=== PATIENT | male | born 1960 | race Caucasian/White ===

== ENCOUNTER 2024-08-18 18:15 | Inpatient (IN) | payer OTHER, SELFPAY ==
[2024-08-18] VITALS (10 sets, daily range): BP systolic 115–169; BP diastolic 74–95; BMI 32.5; BMI 32.1
--- NOTE | 2024-08-18 15:15 | EDRN ---
Francisca BENTON in room w/pt at this time.
--- NOTE | 2024-08-18 15:35 | ED.GENMED ---
History of Present Illness
<Cha Ovalle PA-C - Last Filed: 08/19/24 07:06>
General
Chief Complaint: Chest Pain
Source: patient
Exam Limitations: none
Time Seen by Provider: 08/18/24 14:55
Nursing documentation reviewed up to this point in time: agreed with
History of Present Illness
History of Present Illness:
pt is a 63 y/o M
h/o PAF on eliquis
followed by dr. barillas from cardiology ([place]) and dr. george from EP
scheduled for ablation on 08/29
while here at the hospital having preadmission testing done, pt developed 8/10 central cp, into jaw and donw L arm lasting 10 minutes;
it fully resolved
someone at the office nioticed and flor a troponin, he saw the [employer] and she recommended he come to the ER
pt has no pain now
he says when this pain first started several months ago it was super rare
now i nthe past few weeks he is having episodes every 3 days or so and when it comes on it is intense but it always resolves; and it is always while doing something though it can be light activity; he does walk 10 miles a day and some days has no
pain at all
no vomiting, nausea, syncope, palptiatoins
stress test last several years ago
no stents
former smoker
Review of Systems
<Cha Ovalle PA-C - Last Filed: 08/19/24 07:06>
Review of Systems
Allergies reviewed?: Yes
All Other Systems: Not applicable
Phy Exam
<Cha Ovalle PA-C - Last Filed: 08/19/24 07:06>
Physical Exam
Physical Exam:
GENERAL: Alert , in no apparent distress
EYE: pupils equal and reactive
NECK: Supple
ENT: o/p clr, mmm.
CARDIAC: Regular rate and rhythm .
LUNGS: Clear breath sounds bilaterally, no acute respiratory distress, no wheezes/rales/rhonchi
ABDOMEN: Soft, without focal tenderness, no r/g, no cvat, normal bowel sounds
NEUROLOGICAL: Alert and oriented, no focal neuro deficits
SKIN: Warm and dry, skin intact.
MUSCULOSKELETAL: No edema, well perfused. neg mauricio's sign
PSYCH: Normal and appropriate interaction.
Scores
<Cha Ovalle PA-C - Last Filed: 08/19/24 07:06>
Heart Score for Chest Pain Patients
STEMI patient?: No
History: Moderately Suspicious
ECG: Nonspecific Repolarization
Age: >45 - <65 years
Risk Factors: 1 or 2 Risk Factors
Troponin: </= Normal Limit
Heart Score for Chest Pain Patients: 4
Heart Score Risk: 20.3% MACE over next 6 weeks
Course
<Cha Ovalle PA-C - Last Filed: 08/19/24 07:06>
Orders/Labs/Results
Orders:
Orders
08/18/24 Breakfast
Cholesterol Lowering
At Your Request: Full Participation
Does patient need a safe tray?: No
08/18/24 12:16
EKG [Electrocardiogram (*1)] Urgent
Reason for Study: Chest Pain
EKG- Treatment ONCE
08/18/24 15:27
EKG- Treatment ONCE
08/18/24 16:12
Consult Cardiology [CARDIOLOGY CONSULT] Urgent
Consulting Provider: [place] [facility]
Was physician already notified: Yes
08/18/24 16:30
Electrocardiogram (*1) Urgent
Reason for Study: Chest Pain
08/18/24 16:41
Troponin I Urgent
08/18/24 17:25
Aspirin Chewable [Low Strength Aspirin] 324 mg PO NOW STA
08/18/24 17:26
Heparin Protocol- PTT Orders As Directed
PTT per Heparin protocol: -Obtain CBC and baseline PTT - if not already collected.
-Obtain PTT 6 hours from start of infusion. Then, every 6 hours until 2 consecutive
PTT's are therapeutic. Then, PTT Daily.
-With each rate change, obtain PTT every 6 hours until 2 consecutive PTT's are
therapeutic. Then, PTT Daily.
Notify MD As Directed
Notify physician if: PTT is greater than or equal to 200.
08/18/24 17:30
Heparin 77159 Units/250 ml 25,000 units in 250 ml IV PER PROTOCOL
Weight to be used for heparin protocol in kilograms (kg):: 111.7
Protocol:: Cardiac Tx/Acute Coronary
PTT Goal Range to be used:: PTT 73 to 111 seconds
Order type:: Initial
INITIAL Infusion Dose (UNITS/KG/hr) & then follow protocol:: 12 units/kg/hr
Infusion Dose in UNITS/hr & then follow protocol (UNITS/hr):: 1,000
INFUSION RATE in mL/hr & then follow protocol (mL/hr):: 10
PTT less than or equal to 64 seconds:: Increase rate by 200 units/hr (+ 2 mL/hr)
PTT 64.1 to 72.9 seconds:: Increase rate by 100 units/hr (+ 1 mL/hr)
PTT 73 to 111 seconds:: Target Range. No change in rate.
PTT 111.1 to 130.9 seconds:: Decrease rate by 100 units/hr (- 1 mL/hr)
PTT 131 to 199.9 seconds:: HOLD for 1 hr. Then decrease rate by 200 units/hr (- 2 mL/hr)
PTT greater than or equal to 200 seconds:: HOLD for 2 hrs & Notify Provider. Then decrease by 200 units/hr (-
2 mL/hr)
Lab follow-up:: Each change, PTT q6h until 2 consecutive are therapeutic. Then PTT
daily.
08/18/24 17:54
Admit/Transfer Patient As Directed
Co-Sign Provider:
Level of Care: Inpatient admission
Assign to:: Telemetry
Physician / Group: Reglay
Diagnosis: chest pain
Reason for Telemetry: Chest Pain syndromes
Date to Stop Telemetry: 08/20/24
Time to Stop Telemetry: 11:00
Reason for Hospitalization: chest pain
Expected length of stay greater than two midnights?: Yes
ELOS- Estimated Length of Stay in days: 3
I certify the patient meets the requirements for IP care: Yes
PTT Urgent
Comment: Obtain baseline before beginning heparin infusion if not already collected
PRN Pain Medication Management As Directed
May give lesser potent ordered pain med per pt: Yes
preference::
Protocol:: Medication orders for pain may be administered in a
manner that supports deferring to patient preference
when the pt is:
- Requesting an ordered lesser potent pain medication.
Least to most potent pain medications are defined
as: acetaminophen < NSAID < tramadol < opioids
(morphine, oxycodone, hydromorphone).
- Requesting a lesser dose of the same medication IF
ORDERED.
- Requesting a less intrusive route of administration
if both routes are prescribed by the provider (PO <
IV).
08/18/24 17:55
Code Status As Directed
Resuscitation Status: Full Code
08/18/24 20:31
Albuterol [ProAIR HFA INHALER] 1 puff INH R Q4HPRN PRN
Metoprolol [Lopressor] 25 mg PO BID
[id number]-[id number]-kjcibbtedp [Breztri Aerosphere] 2 inh INH R BID
08/18/24 20:31
Heparin Protocol- PTT Orders As Directed
PTT per Heparin protocol: -Obtain CBC and baseline PTT - if not already collected.
-Obtain PTT 6 hours from start of infusion. Then, every 6 hours until 2 consecutive
PTT's are therapeutic. Then, PTT Daily.
-With each rate change, obtain PTT every 6 hours until 2 consecutive PTT's are
therapeutic. Then, PTT Daily.
Activity As Directed
Activity Level: As Tolerated
INT (Intravenous Needle Therapy) As Directed
Comment: maintain peripheral IV access
Intake/ Output As Directed
Frequency: Per unit guidelines
Notify MD As Directed
Notify physician if: PTT is greater than or equal to 200.
Vital Signs As Directed
Frequency: q4h
08/18/24 20:48
Troponin I Q3H
Comment: at admit & Q3H for 3 total including ED draws, obtain ECG with each level
08/18/24 23:39
Troponin I Q3H
Comment: at admit & Q3H for 3 total including ED draws, obtain ECG with each level
08/18/24 23:59
Electrocardiogram (*1) Q6H
Reason for Study: Chest Pain
Comment: at admission and Q3H for total of 3, to be done with each troponin
08/19/24 05:55
Cardiovascular Evaluation IN AM
08/19/24 05:59
Electrocardiogram (*1) Q6H
Reason for Study: Chest Pain
Comment: at admission and Q3H for total of 3, to be done with each troponin
08/19/24 Breakfast
NPO
Allow oral meds: Yes
Allow clear liquids: No
08/19/24 08:00
Aspirin Chewable [Low Strength Aspirin] 81 mg PO DAILY
Aspirin Chewable [Low Strength Aspirin] 81 mg PO DAILY
Losartan [Cozaar] 50 mg PO DAILY
08/19/24 11:59
Electrocardiogram (*1) Q6H
Reason for Study: Chest Pain
Comment: at admission and Q3H for total of 3, to be done with each troponin
08/20/24 06:00
Complete Blood Count/No Diff Q2D
Comment: Notify MD if platelet count is <130,000 or decreases by 50% from baseline
08/20/24 11:00
DC Protocol for Telemetry ONCE
08/22/24 06:00
Complete Blood Count/No Diff Q2D
Comment: Notify MD if platelet count is <130,000 or decreases by 50% from baseline
08/24/24 06:00
Complete Blood Count/No Diff Q2D
Comment: Notify MD if platelet count is <130,000 or decreases by 50% from baseline
08/26/24 06:00
Complete Blood Count/No Diff Q2D
Comment: Notify MD if platelet count is <130,000 or decreases by 50% from baseline
08/28/24 06:00
Complete Blood Count/No Diff Q2D
Comment: Notify MD if platelet count is <130,000 or decreases by 50% from baseline
08/30/24 06:00
Complete Blood Count/No Diff Q2D
Comment: Notify MD if platelet count is <130,000 or decreases by 50% from baseline
09/01/24 06:00
Complete Blood Count/No Diff Q2D
Comment: Notify MD if platelet count is <130,000 or decreases by 50% from baseline
09/03/24 06:00
Complete Blood Count/No Diff Q2D
Comment: Notify MD if platelet count is <130,000 or decreases by 50% from baseline
Vital Signs
Initial and Last Documented VS:
Initial Vital Signs
Temp Pulse Resp BP Pulse Ox
36.4 C 55 16 169/95 100
08/18/24 12:20 08/18/24 12:20 08/18/24 12:20 08/18/24 12:20 08/18/24 12:20
Last Documented Vital Signs
Temp Pulse Resp BP Pulse Ox
36.4 C 74 16 129/77 96
08/19/24 05:42 08/19/24 06:00 08/19/24 05:42 08/19/24 05:42 08/19/24 05:42
<Brody Ye MD - Last Filed: 08/18/24 15:51>
Orders/Labs/Results
Orders:
Orders
08/18/24 Breakfast
Cholesterol Lowering
At Your Request: Full Participation
Does patient need a safe tray?: No
08/18/24 12:16
EKG [Electrocardiogram (*1)] Urgent
Reason for Study: Chest Pain
EKG- Treatment ONCE
08/18/24 15:27
EKG- Treatment ONCE
08/18/24 16:12
Consult Cardiology [CARDIOLOGY CONSULT] Urgent
Consulting Provider: [facility]
Was physician already notified: Yes
08/18/24 16:30
Electrocardiogram (*1) Urgent
Reason for Study: Chest Pain
08/18/24 16:41
Troponin I Urgent
08/18/24 17:25
Aspirin Chewable [Low Strength Aspirin] 324 mg PO NOW STA
08/18/24 17:26
Heparin Protocol- PTT Orders As Directed
PTT per Heparin protocol: -Obtain CBC and baseline PTT - if not already collected.
-Obtain PTT 6 hours from start of infusion. Then, every 6 hours until 2 consecutive
PTT's are therapeutic. Then, PTT Daily.
-With each rate change, obtain PTT every 6 hours until 2 consecutive PTT's are
therapeutic. Then, PTT Daily.
Notify MD As Directed
Notify physician if: PTT is greater than or equal to 200.
08/18/24 17:30
Heparin 54897 Units/250 ml 25,000 units in 250 ml IV PER PROTOCOL
Weight to be used for heparin protocol in kilograms (kg):: 111.7
Protocol:: Cardiac Tx/Acute Coronary
PTT Goal Range to be used:: PTT 73 to 111 seconds
Order type:: Initial
INITIAL Infusion Dose (UNITS/KG/hr) & then follow protocol:: 12 units/kg/hr
Infusion Dose in UNITS/hr & then follow protocol (UNITS/hr):: 1,000
INFUSION RATE in mL/hr & then follow protocol (mL/hr):: 10
PTT less than or equal to 64 seconds:: Increase rate by 200 units/hr (+ 2 mL/hr)
PTT 64.1 to 72.9 seconds:: Increase rate by 100 units/hr (+ 1 mL/hr)
PTT 73 to 111 seconds:: Target Range. No change in rate.
PTT 111.1 to 130.9 seconds:: Decrease rate by 100 units/hr (- 1 mL/hr)
PTT 131 to 199.9 seconds:: HOLD for 1 hr. Then decrease rate by 200 units/hr (- 2 mL/hr)
PTT greater than or equal to 200 seconds:: HOLD for 2 hrs & Notify Provider. Then decrease by 200 units/hr (-
2 mL/hr)
Lab follow-up:: Each change, PTT q6h until 2 consecutive are therapeutic. Then PTT
daily.
08/18/24 17:54
Admit/Transfer Patient As Directed
Co-Sign Provider:
Level of Care: Inpatient admission
Assign to:: Telemetry
Physician / Group: Htay
Diagnosis: chest pain
Reason for Telemetry: Chest Pain syndromes
Date to Stop Telemetry: 08/20/24
Time to Stop Telemetry: 11:00
Reason for Hospitalization: chest pain
Expected length of stay greater than two midnights?: Yes
ELOS- Estimated Length of Stay in days: 3
I certify the patient meets the requirements for IP care: Yes
PTT Urgent
Comment: Obtain baseline before beginning heparin infusion if not already collected
PRN Pain Medication Management As Directed
May give lesser potent ordered pain med per pt: Yes
preference::
Protocol:: Medication orders for pain may be administered in a
manner that supports deferring to patient preference
when the pt is:
- Requesting an ordered lesser potent pain medication.
Least to most potent pain medications are defined
as: acetaminophen < NSAID < tramadol < opioids
(morphine, oxycodone, hydromorphone).
- Requesting a lesser dose of the same medication IF
ORDERED.
- Requesting a less intrusive route of administration
if both routes are prescribed by the provider (PO <
IV).
08/18/24 17:55
Code Status As Directed
Resuscitation Status: Full Code
08/18/24 20:31
Albuterol [ProAIR HFA INHALER] 1 puff INH R Q4HPRN PRN
Metoprolol [Lopressor] 25 mg PO BID
ziqsxablde-iyjydyqi-fxxarfmecf [Breztri Aerosphere] 2 inh INH R BID
08/18/24 20:31
Heparin Protocol- PTT Orders As Directed
PTT per Heparin protocol: -Obtain CBC and baseline PTT - if not already collected.
-Obtain PTT 6 hours from start of infusion. Then, every 6 hours until 2 consecutive
PTT's are therapeutic. Then, PTT Daily.
-With each rate change, obtain PTT every 6 hours until 2 consecutive PTT's are
therapeutic. Then, PTT Daily.
Activity As Directed
Activity Level: As Tolerated
INT (Intravenous Needle Therapy) As Directed
Comment: maintain peripheral IV access
Intake/ Output As Directed
Frequency: Per unit guidelines
Notify MD As Directed
Notify physician if: PTT is greater than or equal to 200.
Vital Signs As Directed
Frequency: q4h
08/18/24 20:48
Troponin I Q3H
Comment: at admit & Q3H for 3 total including ED draws, obtain ECG with each level
08/18/24 23:39
Troponin I Q3H
Comment: at admit & Q3H for 3 total including ED draws, obtain ECG with each level
08/18/24 23:59
Electrocardiogram (*1) Q6H
Reason for Study: Chest Pain
Comment: at admission and Q3H for total of 3, to be done with each troponin
08/19/24 05:55
Cardiovascular Evaluation IN AM
08/19/24 05:59
Electrocardiogram (*1) Q6H
Reason for Study: Chest Pain
Comment: at admission and Q3H for total of 3, to be done with each troponin
08/19/24 Breakfast
NPO
Allow oral meds: Yes
Allow clear liquids: No
08/19/24 08:00
Aspirin Chewable [Low Strength Aspirin] 81 mg PO DAILY
Aspirin Chewable [Low Strength Aspirin] 81 mg PO DAILY
Losartan [Cozaar] 50 mg PO DAILY
08/19/24 11:59
Electrocardiogram (*1) Q6H
Reason for Study: Chest Pain
Comment: at admission and Q3H for total of 3, to be done with each troponin
08/20/24 06:00
Complete Blood Count/No Diff Q2D
Comment: Notify MD if platelet count is <130,000 or decreases by 50% from baseline
08/20/24 11:00
DC Protocol for Telemetry ONCE
08/22/24 06:00
Complete Blood Count/No Diff Q2D
Comment: Notify MD if platelet count is <130,000 or decreases by 50% from baseline
08/24/24 06:00
Complete Blood Count/No Diff Q2D
Comment: Notify MD if platelet count is <130,000 or decreases by 50% from baseline
08/26/24 06:00
Complete Blood Count/No Diff Q2D
Comment: Notify MD if platelet count is <130,000 or decreases by 50% from baseline
08/28/24 06:00
Complete Blood Count/No Diff Q2D
Comment: Notify MD if platelet count is <130,000 or decreases by 50% from baseline
08/30/24 06:00
Complete Blood Count/No Diff Q2D
Comment: Notify MD if platelet count is <130,000 or decreases by 50% from baseline
09/01/24 06:00
Complete Blood Count/No Diff Q2D
Comment: Notify MD if platelet count is <130,000 or decreases by 50% from baseline
09/03/24 06:00
Complete Blood Count/No Diff Q2D
Comment: Notify MD if platelet count is <130,000 or decreases by 50% from baseline
Vital Signs
Initial and Last Documented VS:
Initial Vital Signs
Temp Pulse Resp BP Pulse Ox
36.4 C 55 16 169/95 100
08/18/24 12:20 08/18/24 12:20 08/18/24 12:20 08/18/24 12:20 08/18/24 12:20
Last Documented Vital Signs
Temp Pulse Resp BP Pulse Ox
36.4 C 74 16 129/77 96
08/19/24 05:42 08/19/24 06:00 08/19/24 05:42 08/19/24 05:42 08/19/24 05:42
<Cha Ovalle PA-C - Last Filed: 08/19/24 07:06>
MDM/Problems Addressed
Differential Diagnosis Includes:
angina, acs
MDM/Problems Addressed:
63 y/o M
h/o former smoker, HTN, PAF on eliquis
here with chest pain that lasted about 10 minutes today at 11am while in the hospital for preadmission testing for scheduled ablation for AF next week
pt had CT of his hchest and was going to have labs and while walking short distance got intense pain which fully resolved
they flor a troponin at the time of onset which was neg
he was told he should be seen in the ER for further w/u
pt last had stress test severla years ago
no stents
pt's ekg is nsr
no ischemic changes
1st trop in lab system, confirmed neg
will send for 2nd trop and ekg at 430-5 pm
consulted [facility] cardiology
d/w ed attending.
<Cha Ovalle PA-C - Last Filed: 08/19/24 07:06>
*Critical Care Note
Total Time (30-74mins, 75-104mins- exclusive of procedures): Not Applicable
ED Attending Note
<Cha Ovalle PA-C - Last Filed: 08/19/24 07:06>
-
Portions of this chart may have been created with voice recognition software.� Occasional wrong word or��sound alike� substitutions may have occurred due to the inherent limitations of voice recognition software.
<Brody Ye MD - Last Filed: 08/18/24 15:51>
ED Attending Note
Patient seen and examined by attending physician: Yes
I performed the substantive portion of visit, reviewed & personally made and approve the management plan that is documented in note by myself or LEIGH.: Yes
ED Attending Note:
63-year-old male episodes of chest pain to the left jaw down the left arm. Episodic in nature. Recurred for months. Initially every 3 to 4 days. Now more frequent. Had an episode yesterday and episode today at preadmission testing. Episodes
last 10 to 15 minutes. Occurred late morning. No shortness of breath or diaphoresis. Seems somewhat exertional however at other times can walk 10 miles without issues. Patient is scheduled for an atrial fibrillation. Smoker, hypertension,
elevated BMI
Exam is unremarkable. Lungs are clear and equal. Heart regular rate and rhythm no murmur. Abdomen elevated BMI soft and nontender. Extremities warm and dry. Perfusing well. Grossly nonfocal.
EKG is unremarkable.
Impression is intermittent episodes of chest discomfort lasting 10 to 15 minutes radiating to the left arm and left side of the neck and jaw. Concerning for unstable or new onset angina. Symptoms have progressed more. Monitor only counter
argument would be he at times can walk 10 miles without issues.'s. Warrants cardiac workup and cardiac evaluation
Discharge Plan
Departure
Patient Disposition: Admit
Date of Disposition: 08/18/24
Time of Disposition: :
Presentation/result/management discussed w/ accepting MD/DO: Cardiology
Discharge Problem:
Unstable angina
Interventions
Interventions:
*Risk Screen - Suicide Last Done: 08/18/24 15:45
*General Assessment Last Done: 08/18/24 15:44
*Neglect/Abuse Screening Last Done: 08/18/24 15:45
*ED- Fall Risk Assessment Last Done: 08/18/24 15:44
*ED COVID-19 Vaccine History Last Done: 08/18/24 20:12
*Nursing Disposition Last Done: 08/18/24 20:06
ED- Cardiac Assessment Last Done: 08/18/24 15:45
Discharge Date and Time
Discharge Date/Time: 08/18/24 20:07
--- NOTE | 2024-08-18 16:35 | EDRN ---
[facility] PA in room w/pt at this time.
--- NOTE | 2024-08-18 16:42 | EDRN ---
Repeat troponin drawn and sent at this time.
--- NOTE | 2024-08-18 16:59 | CON.CAR ---
Addendum entered and electronically signed by Bel Cam DO 08/18/24 18:07:
I saw and examined the patient.
The Chiropractic Neurologist's note was reviewed and I agree with the note.
Comment: Patient was seen and examined in ED bed 29Jomar Patterson follows with Dr. Palma at [facility] since 2019 when he had newly diagnosed relatively asymptomatic atrial fibrillation in the setting of an incarcerated umbilical hernia. At the time of his
diagnosis he had a successful cardioversion maintaining sinus rhythm for several years. Unfortunately he has had several recurrences of atrial fibrillation and is now been referred to EP, Dr. Elena scheduled for ablation August 29, 2024. He has
been maintained on metoprolol tartrate 25 mg twice daily as well as Eliquis 5 mg twice daily. He has no history of stroke/TIA. Additionally, he has a history of prior tobacco dependence but has been tobacco free for 20-25 years; he does have COPD
and follows with a silverware washer in [place]. He reports prior sleep apnea testing was unremarkable. He has no known coronary artery disease or diabetes. He reports a stress test in 2022 was reassuring. He denies elevated cholesterol and reports
that he has not been recommended cholesterol-lowering therapy. No family history for premature coronary artery disease. He states for the last 4 months he has had episodes of heavy chest pain with escalating symptoms now occurring after walking
short distances; symptoms last approximately 10 minutes, resolve with rest and make him feel lightheaded. He had previously attributed the symptoms to his A-fib. He had an episode yesterday and then again today during preadmission testing. The
episode today with severe associated with lightheadedness. He is currently chest pain-free.
General: No acute distress, AAOX3
Neck: Negative JVD
Heart: Regular, Negative S3 positive S1/S2, Negative S4, No murmur
Lungs: CTA b/l, negative wheezes/rales/rhonchi
Abd: Positive BS, NT/ND, neg rebound/rigidity/guarding
Ext: No edema. Right radial Esau's test okay.
Neuro: nonfocal
Plan:
Exertional chest discomfort concerning for angina with escalating symptoms over the last 4 months
-Currently chest pain-free
-ECG reviewed by me is SR without acute ST changes
-Initial troponin was actually drawn at preadmission testing was undetectable. Second troponin still not elevated but did increase from initial at 0.031
-Will trend cardiac troponins and serial EKGs
-Telemetry monitoring
-Will hold outpatient Eliquis and start IV heparin gtt
-Start aspirin 81 mg daily
-Continue metoprolol tartrate. Will hold losartan as patient received IV dye today for preablation CT scan and will receive IV dye tomorrow for cardiac catheterization
-Check 2D echocardiogram
-Patient has been n.p.o. for preadmission testing so we will add on lipid profile and hemoglobin A1c to ER lab work
-Plan for left heart catheterization 08/19/2024
Paroxysmal atrial fibrillation currently in sinus rhythm
-Eliquis will be transition to IV heparin gtt
-Add aspirin 81 mg daily
-Continue metoprolol tartrate 25 mg twice daily
-Ablation currently scheduled 08/29/[address] Elena. EP plan may change pending results of cardiac catheterization. Dr. Elena was updated
Hypertension
-Blood pressure is normotensive on current therapy
-Will hold a.m. dose of losartan after dye load today with anticipated dye load tomorrow
-Monitor blood pressure trends; goal normotension
History of COPD and remote tobacco dependence
-No active issues
-Reports prior testing for sleep apnea was negative
History of prostate cancer undergoing surveillance monitoring
Original Note:
Consultation
Consultation Request
Date/Time Consultation Requested: 08/18/24
Date/Time Consultation Performed: 08/18/24
Requesting Provider: Yamile BENTON in the ER
Performing Provider: Dr. Cam
Reason for Consultation: Chest pain
Medical History
-
History of Present Illness:
Patient came to ER from outpatient preadmission testing today with complaints of CP and cardiology has been consulted. Patient started following with Dr. Palma at [facility] back in 2019 when he had newly diagnosed A-fib in the setting of an
incarcerated umbilical hernia. Patient had successful CV at that time and did not recur until years later in the setting of pneumonia and again he responded well to CV. Patient then had a third recurrence of A-fib that presented itself as syncope
in 04/2024 and again he had another successful CV and was then referred to EP at . Patient has elected for ablation therapy of the scheduled for 08/29/2024 and therefore presented to outpatient preadmission testing today for CT scan, labs and H&P.
Patient reports that for the last 3 to 4 months about every 10 days he has an episode of chest pain that happens when he is walking a short distance, but interestingly when he walks anywhere from 9 to 10 miles over a 3-hour period several times a
week he does not have chest pain. Over the last 2 weeks the pain has become daily and then this week he had an episode of pain yesterday and again today. He is not having any resting pain. The episodes of chest pain always occur outside of his
longer walks that he takes for exercise and he cannot be sure if he is perhaps walking at a faster speed. He denies ever having chest pain during his longer walks for exercise. He had a stress test back in 2022 as noted above that was ordered
after his second episode of A-fib. He has never had pain like this before and so has never had ischemic evaluation for pain like this before. He used to smoke heavily smoking 2 packs a day or more from age 16 into his mid 40s, but has now quit.
He denies binge drinking and will only have 1-2 drinks a month. He is pain-free at rest.
PMH:
Paroxysmal Afib
diagnosed in 2019
scheduled for PVI at 08/29/24
Chronic Eliquis OAC
HTN
COPD
h/o prostate CA
Past Medical History
Past Medical History: Other (in HPI)
Past Surgical History: Tonsilectomy and Other (strangulated hernia repair 2018)
Social History
Tobacco: Former Smoker (smoked 2 ppd from [age])
Alcohol: Occasional (1-2 times a month)
Drug: None
Personal:
Living: With Family
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
Family History
Family History: Reviewed & Not Pertinent (no FH CAD, mother with AVM)
Allergies / Home Medications
Allergy/AdvReac Type Severity Reaction Status Date / Time
No Known Allergies Allergy Verified 08/12/24 18:06
�Medication �Instructions �Recorded �Confirmed �Type
apixaban 5 mg tablet (Eliquis) 5 mg PO BID 08/12/24 08/12/24 History
budesonide 160 mcg-glycopyr 9 2 inh inhalation BID 08/12/24 08/12/24 History
mcg-formot 4.8 mcg/actuation HFA
inhaler (Breztri Aerosphere)
dupilumab 300 mg/2 mL subcutaneous 300 mg SC Q2W 08/12/24 08/12/24 History
pen injector (Dupixent)
losartan 50 mg tablet 50 mg PO DAILY 08/12/24 08/12/24 History
metoprolol succinate 25 mg 25 mg PO BID 08/12/24 08/12/24 History
tablet,extended release 24 hr
Review of Systems
-
History Source: Patient
All other systems: Negative unless noted
Physical Exam
Vital Signs
Temp Pulse Resp BP Pulse Ox
97.5 F 61 14 140/89 97
08/18/24 12:20 08/18/24 16:15 08/18/24 16:15 08/18/24 16:00 08/18/24 16:15
GEN: NAD. AAOx3
HEENT: EOMI, MMM
LUNGS: RA. CTA B/L without wheeze
CV: SR on tele. Reg, S1/S2, no murmur
ABD: soft, BS+, NT, ND
EXT: No clubbing, cyanosis, lesions or edema B/L
NEURO: Gross non-focal
SKIN: Warm, dry and pink. No rash
Lab Results
CBC 08/18/2024: Hgb 15.4, WBC 8.6, PLT 266
CMP 08/18/2024: Blood sugar 111, sodium 137, potassium 4.7, BUN 28, creatinine 1.2, AST 22, ALT 27, troponin undetectable x 1, second troponin pending from ER
Impression / Plan
-
PCP: Dr. Monik Haines
Card: Dr. Palma
EP: Dr. Alberts
Impression:
Chest pain, crescendo angina
Paroxysmal Afib
diagnosed in 2019
scheduled for PVI at 08/29/24
Chronic Eliquis OAC
HTN
COPD
h/o prostate CA
Exercise nuclear stress test 02/16/2023: [facility] study, completed 9 minutes Kennedy protocol reaching 86% MPHR and 10.1 METS of activity, negative stress test by ECG, EF 51%, small to moderate-sized moderately intense fixed inferior and distal
inferolateral defect C/W diaphragmatic attenuation, limited infarction in the RCA and/or OM distribution cannot be entirely excluded, but based on raw images and normal wall motion this is less likely, no obvious ischemia
Echo 2022: Reportedly normal EF
Plan:
-Patient came to ER from outpatient preadmission testing today with complaints of CP and cardiology has been consulted. Patient started following with Dr. Palma at [facility] back in 2018 when he had newly diagnosed A-fib in the setting of an
incarcerated umbilical hernia. Patient had successful CV at that time and did not recur until years later in the setting of pneumonia and again he responded well to CV. Patient then had a third recurrence of A-fib that presented itself as syncope
in 04/2024 and again he had another successful CV and was then referred to EP at . Patient has elected for ablation therapy of the scheduled for 08/29/2024 and therefore presented to outpatient preadmission testing today for CT scan, labs and H&P.
Patient reports that for the last 3 to 4 months about every 10 days he has an episode of chest pain that happens when he is walking a short distance, but interestingly when he walks anywhere from 9 to 10 miles over a 3-hour period several times a
week he does not have chest pain. Over the last 2 weeks the pain has become daily and then this week he had an episode of pain yesterday and again today. He is not having any resting pain. The episodes of chest pain always occur outside of his
longer walks that he takes for exercise and he cannot be sure if he is perhaps walking at a faster speed. He denies ever having chest pain during his longer walks for exercise. He had a stress test back in 2022 as noted above that was ordered
after his second episode of A-fib. He has never had pain like this before and so has never had ischemic evaluation for pain like this before. He used to smoke heavily smoking 2 packs a day or more from age 16 into his mid 40s, but has now quit.
He denies binge drinking and will only have 1-2 drinks a month. He is pain-free at rest.
-ECG reviewed by me is SR without acute ST changes
-Initial troponin was actually drawn at preadmission testing was undetectable. Second troponin drawn in front of me while I saw the patient in the ER and is pending
-Patient is pain-free at rest
-Reviewed scenarios with patient including: Scenario #1 if second troponin is undetectable he could be considered for discharged home with outpatient ischemic evaluation through Dr. aPlma's office, scenario #2 is that if the second troponin is
elevated then he would stay in the hospital for cardiac cath in the morning and scenario #3 is if at any point he has resting pain we would likely pursue cardiac catheterization
-Patient is concerned that this will push back his ablation, but we discussed the importance of evaluating for CAD prior to ablation
-Patient with known paroxysmal A-fib
[2024-08-18 17:08] LABS: Troponin I 0.031 ng/ml
--- NOTE | 2024-08-18 17:20 | EDRN ---
James BENTON w/ cardiology TT'd troponin result of 0.031 at this time.
--- NOTE | 2024-08-18 17:27 | W.PN.UPDATE ---
Update Note
Progress Note Update
Second troponin has increased from undetectable to 0.031 which is still in the normal range, but given clinical scenario is overall concerning and will recommend admission for cardiac cath in the AM. Start heparin drip now, ordered by me. Would
hold dose of Eliquis starting tonight. Aspirin 324 mg p.o. x 1 now and then 81 mg daily starting tomorrow.
--- NOTE | 2024-08-18 17:27 | EDRN ---
Dr. Ye in room w/ pt at this time.
--- NOTE | 2024-08-18 17:30 | HPS.HSE ---
Family Physician
-
Family Physician: Monik Haines
Chief Complaint
-
chest pain
History of Present Illness
63 year old with PMH for hypertension, asthma, prostate cancer, A-fib presented to us with midsternal chest pain radiating to his left arm, neck and jaw and vomiting headache which last for few minutes for past few months. It got into more
intense and . more frequent for past 2 weeks. Patient stated usually happens with exertion but does not happen when he is doing his walking exercise. Denied any short of breath. today he was getting his labs done as outpatient for scheduled
ablation he noted Severe chest pain radiating to the left jaw and left arm. He is not having any resting pain. Patient denied any dizziness or syncope. Patient denied any fever, chills, congestion, cough. Patient denied any abdominal pain,
nausea, vomiting or diarrhea. Patient denied dysuria materia.
Admitting for possible cardiac cath in the morning. Patient received a dose of aspirin in ER. Heparin initiated in ER. Admitted for further management
Medical History
Past Medical History
Past Medical History: Reports Other
Additional Past Medical History:
Hypertension
Asthma
Prostate cancer
A-fib
Past Surgical History: Reports Other
Additional Past Surgical History:
Type II
Hernia repair
Tonsillectomy
Cardioversion x 3
Social History
Tobacco: Former Smoker
Alcohol: None
Drug: None
Personal:
Living: With Family
Family History
Family History: Not pertinent
Allergies / Home Medications
Allergies reflects when Allergies were last updated in [facility].
Home Medications with original date entered in [facility]
Allergy/Medication List:
Allergies
Allergy/AdvReac Type Severity Reaction Status Date / Time
No Known Allergies Allergy Verified 08/12/24 18:06
Home Medications
apixaban 5 mg tablet (Eliquis) 5 mg PO BID 08/12/24
budesonide 160 mcg-glycopyr 9 mcg-formot 4.8 mcg/actuation HFA inhaler (Breztri Aerosphere) 2 inh inhalation R BID 08/12/24
dupilumab 300 mg/2 mL subcutaneous pen injector (Dupixent) 300 mg SC Q2W 08/12/24
albuterol sulfate 90 mcg/actuation aerosol inhaler 1 puff inhalation R Q4HPRN PRN sob 08/18/24
losartan 25 mg tablet 50 mg PO DAILY 08/18/24
metoprolol tartrate 25 mg tablet 25 mg PO BID 08/18/24
Review of Systems
-
Constitutional: Reports No Symptoms
EENT: Reports No Symptoms
Respiratory: Reports No Symptoms
Cardiac: Reports Chest Pain
Abdomen/GI: Reports No Symptoms
: Reports No Symptoms
Musculoskeletal: Reports No Symptoms
Skin: Reports No Symptoms
Neurological: Reports No Symptoms
Endocrine: Reports No Symptoms
Hematologic/Lymphatic: Reports No Symptoms
Psych: Reports No Symptoms
Physical Exam
Vital Signs
Vital Signs
Temp Pulse Resp BP Pulse Ox
97.5 F 68 10 126/90 95
08/18/24 12:20 08/18/24 17:15 08/18/24 17:15 08/18/24 17:00 08/18/24 17:15
Physical Exam
General: Well Developed, Well Nourished and No Apparent Distress
HEENT: NormoCephalic, Moist mucous membranes and Atraumatic
Respiratory: Clear
Cardiac: S1/S2 and Regular Rhythm; No Murmur or Rub
GI: Soft, Non Tender, Non Distended and Normal Bowel Sounds; No Organomegaly
Rectal: Deferred by Provider
Musculoskeletal: No Clubbing, No Cyanosis and No Edema
Skin: No Rash
Neuro: AO x 3 and Nonfocal/grossly intact
Psych: Calm
Laboratory Results
-
Laboratory Results
Troponin I 0.031 ng/ml D 08/18/24 16:41
Data Reviewed
-
Lab Data: Labs Reviewed by me
Impression/Plan
-
# Unstable angina
-Troponin 0.031
-Trend troponin and EKG
-EKG on arrival was normal sinus rhythm
-Repeat EKG with normal sinus rhythm
-N.p.o. after midnight
-Cardiac cath in a.m.
-Heparin drip
-Aspirin 324 in the ER, aspirin 81 continued
# History of A-fib
-Status post cardiac ablation x 3
-Scheduled for ablation therapy on 08/29/2024
-Metoprolol continued with hold parameters
-hold eliquis
# History of COPD
-Not in acute exacerbation
-nebs from home continued
# Essential hypertension
-Losartan continued with hold parameters
# DVT prophylaxis
-Heparin
# CODE STATUS
-Full code
--- NOTE | 2024-08-18 17:33 | EDRN ---
Pharmacy techs in to do med rec. Dr. Cam outdoor studies director in room w/ pt now.
--- NOTE | 2024-08-18 17:55 | EDRN ---
PTT drawn and sent at this time.
[2024-08-18] MEDS: LOW STRENGTH ASPIRIN 324 MG PO (17:56)
[2024-08-18] MEDS: HEPARIN 25000 UNITS/250 ML IV (18:01)
--- NOTE | 2024-08-18 18:06 | W.PN.UPDATE ---
Update Note
Progress Note Update
This note serves as an addendum to the H&P by canteen manager LEIGH Esther LUNA
HPI
63M Former heavy smoker HX Paroxysmal AF (2019) pending PVI at 08/29/24, Chronic Eliquis OAC, HTN, COPD, HX prostate CA seen at ER:
- sent to ER from OP pre admission testing
- report CP and consulted by Card
- prior HX 2 successful CV
- 3rd recurrence AF complicated by syncope in 04/2024 and 3rd successful CV and referred to EP at .
- Pending elected ablation for 08/29/2024
Current CP :
- CP free at rest
- episodes of chest pain with longer walks
- HX stress test back in 2022
- No prior HX ischemic evaluation
PHX; see above
Vital Signs
Temp Pulse Resp BP Pulse Ox
97.5 F 68 10 126/90 95
08/18/24 12:20 08/18/24 17:15 08/18/24 17:15 08/18/24 17:00 08/18/24 17:15
PE
Gen: NAD
HEENT: anicteric
Neck: supple
Lungs: symmetric
Cor: Reg, S1/S2, no mumur
Abdomen: soft , benign
FLATWORK FINISHER HAND: AAO3
MS: no edema
Psych: calm
Laboratory Tests
08/18/24 08/18/24 08/18/24
08:08 10:59 16:41
WBC 8.6
Hgb 15.4
Plt Count 266
INR 1.15
Troponin I < 0.012 0.031 D
Triglycerides
Total Cholesterol Pending
LDL Cholesterol, Calc Pending
VLDL Cholesterol, Calc Pending
HDL Cholesterol Pending
NEG initial TPNI at preadmission
Second TPNI; trending up 0.031
Pending lipid profile
EKG: SR without acute ST changes
Pending Chest CT
NO PRIOR hospitalist admission:
ASSESSMENT & PLAN
Episode of CP plus HX exertional CP: CP free now
Second troponin trending up
EKG without acute ischemic chages
- presumed USA and initiated Heparin gtt at ER
- agree with loading ASA then baby ASA daily
- hold Eliquis
- NPO after MN
- For ischemic evaluation in AM
- [facility] card consulted.
HX Paroxysmal AF (2019) p
Prior HX successful CV x3
0n Chronic Eliquis OAC
Pending elected ablation for 08/29/2024
- currently on Heparin gtt thus holding chr Eliquis
- on ETL ANALYST Metoprolol tartrate
- c/w ETL ANALYST
Benign HTN
- c/w Losartan
HX COPD
Former heavy smoker
- c/w ETL ANALYST INH
DVT Px: on Heparin gtt
Full code
IP TLM
[2024-08-18 18:11] LABS: APTT 30.6 Sec (23.4-35.0)
--- NOTE | 2024-08-18 18:18 | EDRN ---
Called dietary for non par diet tray at this time.
[2024-08-18] MEDS: LOPRESSOR 25 MG PO (21:20)
[2024-08-18 21:23] LABS: Troponin I 0.022 ng/ml
--- NOTE | 2024-08-18 21:40 | PTCARENOTE ---
Rec'd pt as an admission from ED. Pt AAO*3, VSS, and SR on TELE monitor. Pt denies having any pain or discomfort. Pt oriented to unit and agreed to NPO status after midnight. Pt with heparin infusing as ordered. See MAR/flowchart for full pt
care and assessment. Pt resting with call valladares in reach and plan of care ongoing.
[2024-08-18] MEDS: SPIRIVA RESPIMAT 2.5 MCG INH (22:46)
[2024-08-18] MEDS: SYMBICORT 160/4.5 MCG INHALER INH (22:46)
[2024-08-19] VITALS (11 sets, daily range): BP systolic 113–129; BP diastolic 77–101; BMI 32.1
[2024-08-19] LABS: APTT 36.2 Sec (23.4-35.0)
[2024-08-19 00:12] LABS: Troponin I 0.023 ng/ml
[2024-08-19 06:36] LABS: Troponin I 0.018 ng/ml
[2024-08-19 06:39] LABS: HDL Cholesterol 41 mg/dl; LDL Cholesterol, Calculated 101 mg/dl; Total Cholesterol 169 mg/dl (50-199); Triglyceride 136 mg/dl (10-149); Very Low Density Lipoprotein 27 mg/dl (0-30)
[2024-08-19 07:28] LABS: Hepatitis C Antibody Negative (Negative)
[2024-08-19 07:42] LABS: Blood Urea Nitrogen 27 mg/dl (9-20); Carbon Dioxide 21 mmol/L (22-30); Chloride 107 mmol/L (98-107); Estimated Creatinine Clearance 98 ml/min; Glucose 109 mg/dl (70-99); Potassium 4.9 mmol/L (3.5-5.1); Sodium 135 mmol/L (135-145); eGFR > 60.00
[2024-08-19] MEDS: SYMBICORT 160/4.5 MCG INHALER 2 PUFF INH (08:13)
[2024-08-19] MEDS: SPIRIVA RESPIMAT 2.5 MCG 2 PUFF INH (08:13)
[2024-08-19] MEDS: LOW STRENGTH ASPIRIN 81 MG PO (08:25)
--- NOTE | 2024-08-19 09:01 | W.PN.HOSP.TC ---
Today's Communication/Plan
-
for [facility] today
continue holding JH
heparin drip per cards
Assessment / Plan
Assessment / Plan
1. Stable Angina
Troponin elevation
- patient have been developing increasing exertional substernal pressure chest pain w/o diaphoresis/nausea, necessitating rest
- had similar episode during pre-procedure testing for upcoming ablation later in month
- Trop minimally elevated but technically neg x3
- EKG did not show any ST-T wave changes
- Lipid profile reviewed, TC 169, LDL 101.
- Currently patient on ASA/heparin drip
- Cardio planning to take patient to [facility] today
2. Parox afib
h/o CV x3
- patient currently in NSR
- planned to get elective ablation with Dr george on 29 august
- DOAC switched to heparin drip for need of [facility]
3. COPD
Former smoker 50-60PY smoking h/o
- F/us with Pulmonology at [place]
- no recent flare up needing abx/steroids
- Currently symptoms free
- Maintain on home dose of Inhaler. Recently started on dupixent by primary clinical informatics manager.
4. Essential HTN
- c/w Losartan
5. Metabolic acidosis
- minimal, further testing if worsening.
DVT Px: on Heparin gtt
Full code
Total time spent : 52 misn
Anticipated Discharge: 24 - 48 hours
Subjective/Interval History
-
Date of Service: August 19, 2024
chest pain free for the night
in SR currently
no other reported problems
Objective Data
-
Labs:
Laboratory Results
08/18/24 08/19/24 08/19/24
23:39 05:55 12:45
APTT 36.2 H 39.0 H Pending
Sodium 135
Potassium 4.9
Chloride 107
Carbon Dioxide 21 L
BUN 27 H
Creatinine 1.0
Glucose 109 H
Calcium 9.0
Vital Signs:
Vital Signs
Temp Pulse Resp BP Pulse Ox
98.4 F 64 14 129/81 98
08/19/24 07:06 08/19/24 08:17 08/19/24 08:17 08/19/24 07:05 08/19/24 08:17
I&O
08/18/24 08/19/24 08/20/24
06:59 06:59 06:59
Intake Total 480 / 480
Balance 480 / 480
Review of Systems
-
Respiratory: Reports No Symptoms
Cardiac: Reports No Symptoms
Abdomen/GI: Reports No Symptoms
Physical Exam
-
General: No Apparent Distress and Comfortable
HEENT: Negative Oxygen
Respiratory: Clear to Auscultation
Cardiac: Regular Rhythm and S1/S2; Negative Murmur or Rub
GI: Soft, Nontender, Nondistended and Normal Bowel Sounds
Musculoskeletal: No Edema
Neuro: Awake, Alert, Oriented, No Motor Deficits and Nonfocal/Grossly Intact
Psych: Calm
[2024-08-19 10:30] LABS: ACT-LR - POC 266 Seconds (116-155)
[2024-08-19] MEDS: LOPRESSOR PO (10:50)
[2024-08-19] MEDS: COZAAR 50 MG PO (11:16)
--- NOTE | 2024-08-19 11:16 | PTCARENOTE ---
Rec'd Pt 1050, s/p cardiac cath, A,A+OX3, R radial band intact, site clean and dry, + radial pulse. Pt denies pain. VSS
[2024-08-19] MEDS: LOPRESSOR 50 MG PO (11:17)
--- NOTE | 2024-08-19 12:27 | W.PN.UPDATE ---
Addendum entered and electronically signed by Pratibha Dc MD 08/19/24 15:22:
Discussed heart catheterization results bedside with and patient. Reviewed findings including IFR. We discussed plan to check echocardiogram this admission given he has not had 1 recently. Echocardiogram was later completed and reviewed by
myself which showed normal biventricular function without significant valvular abnormalities. Given unclear etiology of his exertional symptoms, we will have him increase his Lopressor to 50 mg twice daily in case he is having paroxysms of A-fib
with RVR while exerting himself. He will resume his Eliquis tonight. We will also have his maxillofacial surgeon as an outpatient weigh in given recent new medication with somewhat overlaps timing otoole with the symptoms.
He is planned to have A-fib ablation with Dr. Ronnie Elena on August 29, 2024 which he will keep. He will plan to see Dr. Palma, his outpatient bore mill operator as an outpatient after the ablation.
If no other unexpected issues, plan for discharge home later today. All of patient's and his 's questions were answered to the best of our ability.
I also updated Drs. Palma, Aristeo and Dorina regarding all of the above.
Discussed with nursing as well.
Pratibha Dc MD, [facility]
Time spent: 32 minutes
Original Note:
Update Note
Progress Note Update
Patient doing well postcardiac catheterization. Discussed plan for echocardiogram today, increasing dose of Toprol. Will resume Eliquis with tonight's dose. He is asked if Dupixent could be etiology of his symptoms�as this was started within the
last several months which roughly correlates to the start of his symptoms. He will discuss with his outpatient maxillofacial surgeon in [place] and perhaps will trial holding medication for the time being. He is planned for ablation 08/29 as scheduled.
Likely for discharge to home today. Outpatient follow-up with Dr. Palma post ablation arranged. Discussed with patient and at bedside. Discussed with nursing
--- NOTE | 2024-08-19 12:33 | ITS.CL.CATH ---
Pumping Station Supervisor - Catheterization
Cardiac Catheterization
Procedure Report:
LEFT HEART CATHETERIZATION
Date of Procedure: August 19, 2024
Referring: [place]
PROCEDURES:
1. Left heart catheterization, coronary angiogram.
2. Ultrasound-guided access.
3. Functional physiologic testing with IFR of OM1.
4. Functional physiologic testing with IFR of OM2.
INDICATION: Concern for unstable angina
ACCESS: Right radial artery, 6 Jama[place] sheath, under ultrasound guidance
Ultrasound was utilized for vascular access. The radial artery was visualized under ultrasound, and the vessel was patent and pulsatile. An image was stored permanently in the patient's medical record. Under direct ultrasound guidance, a 6 [place]ican
sheath was inserted into the artery using a micropuncture kit through a modified Seldinger technique.
HEMODYNAMICS : (mmHg)
AO (s/d) : 127/87
LV (s/d) : 125/10
LVEDP : 15
CORONARY FINDINGS
DOMINANCE: Right
LEFT MAIN: Left main artery is a large-caliber vessel which gives rise to the left anterior descending artery and the left circumflex artery. There is minimal luminal irregularities.
LEFT ANTERIOR DESCENDING: The left anterior descending artery is a large-caliber vessel which gives rise to multiple small to medium caliber diagonal branches as it courses to the anterior interventricular groove and wraps around the apex. There is
minimal luminal irregularities.
CIRCUMFLEX: The left circumflex artery is a medium caliber vessel which gives rise to 2 major obtuse marginal branches and a left posterolateral branch. OM 1 is a medium caliber vessel which has about 50% smooth stenosis in the proximal portion.
OM 2 is a large-caliber vessel which has eccentric 60% stenosis in the proximal portion. Both vessels were checked with functional physiologic testing using IFR and were negative.
RIGHT CORONARY ARTERY: The right coronary artery is a large-caliber, dominant vessel with moderate tortuosity in the mid vessel. It gives rise to the right posterior descending artery and a small right posterolateral system. There is minimal
luminal irregularities.
HEMODYNAMIC ASSESSMENT OF THE OM1 AND OM 2 WITH A VOLCANO OMNI WIRE: The origin of the left coronary artery was cannulated with a 6 Fr EBU 3.75 guide catheter. Intravenous heparin was administered and the ACT was followed during the procedure. Two
hundred micrograms of intracoronary nitroglycerin was given through the guide catheter. A [place] Omni wire was advanced to the guide catheter tip and normalized just outside the guide catheter. The Omni wire was then carefully manipulated across
the stenosis in the OM 1 with the iFR above the ischemic threshold serially measuring 1.0 x 3. The Omni wire was then pulled back to the guide catheter where the Pd/Pa measured 1.0 confirming no baseline drift in pressure readings. We then
directed our attention to the 60% stenosis in OM 2 and directed the [place] Omni wire across this lesion. The iFR above the ischemic threshold serially measuring 1.0 x 3. The Omni wire was then pulled back to the guide catheter where the Pd/Pa
measured 1.0 confirming no baseline drift in pressure readings.
SEDATION: 47 minutes of procedural sedation was utilized. An independent coroner/medical examiner was present to assist with and help manage the patient's level of consciousness and physiologic status.
RADIATION SUMMARY: Fluoro Time (min): 5.8, Dose (mGy): 596.4, DAP (Gy.cm2) : 44.4
Closure Device: Vascular band over right radial artery, 10 cc of air.
CONCLUSIONS
1. No obstructive coronary artery disease.
2. Moderate coronary artery disease noted in OM1 and OM 2 which are IFR negative.
3. LVEDP 15 mmHg
RECOMMENDATIONS
1. Wean radial band per protocol.
2. Check echocardiogram to assess biventricular function and rule out any significant valvular abnormalities.
3. Aggressive management of cardiovascular risk factors.
4. He will follow-up with electrophysiology and keep his appointment for A-fib ablation later this month. Plan to resume Eliquis tonight as long as no issues at the access site.
Copy to: Ronnie Nunes Wiener, Matthew Palma, Monik Haines
Pratibha Dc MD, FACC, [facility]
[2024-08-19] MEDS: PROTONIX 40 MG PO (12:39)
--- NOTE | 2024-08-19 13:43 | CM ---
Reviewed chart. Met with Mr. Child to review discharge plans. He states prior to admission he reside with his spouse and 20 year old daughter in a two story home with three steps to enter. He states he has a full flight of steps to get to
bedroom/full bathroom. He states he has a powder room on the first floor. He states prior to admission he was independent with ambulation and adls He states he does not have any DME in the home. He states he has a prescription plan and uses [facility]. Medical work-up in progress. The discharge plan is to return home with his spouse and daughter when medically stable.
[2024-08-19] MEDS: NSS 1000 IV (14:43)
== END 2024-08-19 17:40 | disposition home or self-care (01) | DRG 287 ==
LOC: IVU 18:15
PROVIDERS: Internal Medicine Interventional Cardiology; Physician Assistant; Physician Assistant Medical; Registered Nurse; ADMITTING PHYSICIAN Internal Medicine; ATTENDING PHYSICIAN Hospitalist; CONSULT PHYSICIAN Internal Medicine Cardiovascular Disease; EMERGENCY PHYSICIAN Emergency Medicine; FAMILY PHYSICIAN Family Medicine
PROC: 4A023N7 Measurement of Cardiac Sampling and Pressure, Left Heart, Percutaneous Approach (ICD-10-PCS; 2024-08-19)
PROC: 4A033BC Measurement of Arterial Pressure, Coronary, Percutaneous Approach (ICD-10-PCS; 2024-08-19)
PROC: B2111ZZ Fluoroscopy of Multiple Coronary Arteries using Low Osmolar Contrast (ICD-10-PCS; 2024-08-19)
DX: I25.110 Atherosclerotic heart disease of native coronary artery with unstable angina pectoris (principal); E87.20 Acidosis, unspecified; I48.0 Paroxysmal atrial fibrillation; Z79.01 Long term (current) use of anticoagulants; Z79.899 Other long term (current) drug therapy; I10 Essential (primary) hypertension; Z85.46 Personal history of malignant neoplasm of prostate; F17.210 Nicotine dependence, cigarettes, uncomplicated; J44.89 Other specified chronic obstructive pulmonary disease; Z79.82 Long term (current) use of aspirin
CPT/HCPCS: 76937; 80048; 80061; 84484; 85347; 85730; 86803; 93005; 93306; 93458; 93799; 94640; 99152; 99153; 99285; C1769; C1894; Q9967

== ENCOUNTER 2024-08-29 08:57 | Day surgery (SDC) | payer OTHER, SELFPAY ==
[2024-08-18 08:01] VITALS: BMI 32.8
[2024-08-18 08:23] LABS: % Basophils 0.9 % (0-2); % Lymphocytes 27.8 % (20.5-51.1); % Monocytes 8.7 % (1.7-9.3); % Neutrophils 58.6 % (42.2-75.2); Absolute Basophils 0.1 10^3/uL (0-0.2); Absolute Eosinophils 0.3 10^3/uL (0-0.7); Absolute Immature Granulocytes 0.1 10^3/uL (0-0.05); Absolute Lymphocytes 2.4 10^3/uL (1.2-3.4); Absolute Monocytes 0.8 10^3/uL (0.1-0.6); Hematocrit 46.8 % (39.0-52.0); Hemoglobin 15.4 g/dL (13.0-18.0); Mean Corp Hgb Conc. 32.9 g/dL (33.0-37.0); Mean Corpuscular Hgb 28.8 pg (27.0-31.0); Mean Corpuscular Volume 87.5 fL (80.0-94.0); Mean Platelet Volume 10.8 fL (7.4-10.4); Nucleated Red Blood Cells % 0 % (-); Platelet Count 266 10^3/uL (130-400); Red Blood Cell Count 5.35 10^6/uL (4.70-6.10); Red Cell Dist. Width 15.5 % (11.5-14.5); White Blood Cell Count 8.6 10^3/uL (4.8-10.8)
[2024-08-18 08:33] LABS: INR 1.15
[2024-08-18 08:37] LABS: ALT (SGPT) 27 U/L (0-50); AST (SGOT) 22 U/L (17-59); Albumin 4.4 g/dl (3.5-5.0); Alkaline Phosphatase 78 U/L (38-126); Blood Urea Nitrogen 28 mg/dl (9-20); Calcium 9.4 mg/dl (8.4-10.2); Carbon Dioxide 24 mmol/L (22-30); Chloride 104 mmol/L (98-107); Estimated Creatinine Clearance 82 ml/min; Glucose 111 mg/dl (70-99); Potassium 4.7 mmol/L (3.5-5.1); Sodium 137 mmol/L (135-145); Total Bilirubin 0.7 mg/dl (0.2-1.3); Total Protein 7.2 g/dl (6.3-8.2); eGFR > 60.00
[2024-08-18 11:33] LABS: Troponin I < 0.012 ng/ml
[2024-08-18 19:43] LABS: HDL Cholesterol 44 mg/dl; LDL Cholesterol, Calculated 111 mg/dl; Total Cholesterol 173 mg/dl (50-199); Triglyceride 92 mg/dl (10-149); Very Low Density Lipoprotein 18 mg/dl (0-30)
[2024-08-19 09:03] LABS: Glycohemoglobin (HgbA1c) 5.9 % (4.0-5.6)
--- NOTE | 2024-08-19 15:53 | W.PN.UPDATE ---
Update Note
Progress Note Update
Troponin 0.012, repeat in ED 0.023.
Patient developed chest pressure just prior to visit with me 08/18/24.
This was midsternal radiating to left arm with associated FREEMAN and relieved at rest.
Troponin negative with no EKG change but advised ED. Patient admitted
with second troponin, which was approximately 3 hours from onset of
symptoms, mildly elevated 0.023.
L cath performed performed 08/19/24 showing:
-No obstructive coronary artery disease.
-Moderate coronary artery disease noted in OM1 and OM 2 which are IFR negative.
-LVEDP 15 mmHg
Aggressive management of coronary risk factors.
[2024-08-29] VITALS (12 sets, daily range): BP systolic 118–143; BP diastolic 70–96
[2024-08-29] MEDS: NSS 500 IV (10:06)
--- NOTE | 2024-08-29 11:02 | ITS.CL.ABL ---
Scientist Engineer - Ablation
Ablation
Procedure Report:
Primary Cement Mason: Matthew Palma MD
Procedure Date: 08/29/2024
Patient History:
Patient is a very pleasant 63-year-old male with a past medical history significant for asthma, prostate cancer, hypertension, incidental pulmonary nodule, symptomatic paroxysmal atrial fibrillation.
See H&P for complete details.
Indication:
Symptomatic paroxysmal AF
Arrhythmia Specific History:
Prior Medical Therapies for Rate and Rhythm Control:
X Beta-rosa maria
[ ] Calcium channel-rosa maria
[ ] Amiodarone
[ ] Dronederone
[ ] Sotalol
[ ] Flecainide
[ ] Dofetilide
[ ] Options limited by bradycardia
[ ] Options limited by comorbid renal disease
Prior Procedural Therapies for AF/AFL:
X Cardioversion
[ ] Pulmonary Vein Isolation
[ ] Posterior Wall Isolation
[ ] Additional lines (Specify)
[ ] Surgical Parsons-MAZE or PVI (Specify)
Procedure Performed:
X AF ablation procedure (98091) -- includes LA/CS pacing, trans-septal, 3D mapping, + ICE
[ ] +IV drug (38180)
[ ] +Other Arrhythmia (95423)
[ ] +Other AF Line/ablation (38277)
Risks and expected recovery has been explained in detail. Alternative options have been explored, and in a shared-decision making fashion we have decided that this was the most appropriate procedure.
Method
NPO status confirmed. Grounding pad applied. Defibrillator pads applied. Continuous surface ECG, pulse oximetry, and blood pressure were monitored. Procedure was performed under general anesthesia, with anesthesia services.
Both groins were clipped, prepped with Chloraprep, and draped in sterile fashion. Time out was called. Local anesthesia administered with bupivacaine. The right femoral vein was accessed for catheter placement, using ultrasound guidance (images
saved to record), micro-puncture needle/wire, and modified seldinger technique. 3 sheaths were placed. The following catheters were used:
[ ] Tacticath SE (D/F Curve) ablation catheter
X Viewflex 9Fr ICE catheter
X Inquiry decapolar 6Fr diagnostic catheter
[ ] CRD Hex 6Fr
[ ] Arctic Front Advance Cryoballoon ([ ]28mm[ ]23mm)
[ ] Achieve Advance mapping catheter ([ ]15mm[ ]20mm)
X FlexCath Contour 10 Fr with PulseSelect PFA Catheter
X Advisor HD Grid Mapping Catheter, SE
[ ] Acuson AcuNav 8 Fr ICE catheter
[ ]Other: [ ]
Intracardiac ultrasound (ICE) was carefully advanced into the right atrium to guide sheath placement over a J-wire, catheter placement, guide trans-septal puncture, identify potential complications, identify anatomic structures and ensure proper
contact between ablation catheter and tissue.
Heparin was given prior to trans-septal puncture. Heparin was given to achieve and maintain a target ACT of 300-400 seconds throughout the procedure.
Trans-septal access was performed under ICE guidance. The trans-septal puncture was performed with a SafeSept wire through a [place]rough needle assembly through the steerable sheath. The wire was visualized as it entered the LSPV and system
advanced under ICE guidance and fluoroscopy into the LA. The Brockenbrough needle assembly, SafeSept wire and sheath dilator were removed under negative pressure. LA pressure was measured and recorded.
ICE and 3D mapping was performed to identify relevant cardiac structures. A careful 3D map was created to assess for regions of low-voltage and abnormal electrogram signals using HD grid mapping catheter and PulseSelect catheter. Additional mapping
was performed as outlined below.
Prior to ablation, glycopyrrolate was provided. PulseSelect catheter was advanced over J-wire to the ostium of each vein. Pulmonary vein isolation was performed with ostial and antral lesions in a circumferential manner. Contact was visualized via
EAM, ICE, fluoroscopy, and EGM signals. Following completion of ablation lesions, a post-ablation voltage/activation map was performed in sinus rhythm. During mapping with HD grid after ablation, reconnection noted at RIPV. PulseSelect reintroduced
and ablation performed at [facility]. Re-map demonstrated isolation. Entrance and exit block were confirmed for each vein.
Catheter and sheath were removed from the left atrium and post-ablation intracardiac echo evaluation was consistent with pre-ablation with no changes and no pericardial effusion and there is no left atrial thrombus or left ventricle thrombus seen.
Electrophysiology study was performed. Hemostasis was obtained with Vascade for each sheath and with manual pressure. Protamine was used for reversal.
Estimated Blood Loss
5 mL
Complications
None
Fluoroscopy: 12.8 minutes; 47.85 mGy; DAP 12.4
LA Pressure (mean):
Pre: 5
Post: 9
Baseline Intervals:
Rhythm: SR
DE: 154 ms
QRS: 65 ms
QT: 386 ms
QTc: 394 ms
Post-Procedure Intervals:
DE: 152 ms
QRS: 89 ms
QT: 400 ms
QTc: 419 ms
AVWB: 490 ms
AERP: 600/390 ms
Recommendations
- Bedrest with straight-leg precautions as ordered
- Anticipate same day discharge if patient meeting clinical metrics
- Resume home medications as indicated
- Ok to resume anticoagulation tonight if patient and groin sites stable
- PPI daily for 30 days
- Plan for follow-up in office as scheduled
Kameron Alberts DO, LOCATED WITHIN [facility], [facility]
Clinical Cardiac Social Scientist
cc: Matthew Palma MD; Dr Monik Haines
[2024-08-29 11:45] LABS: ACT-LR - POC 252 Seconds (116-155)
[2024-08-29 11:59] LABS: ACT-LR - POC 335 Seconds (116-155)
[2024-08-29 12:23] LABS: ACT-LR - POC 395 Seconds (116-155)
[2024-08-29 12:39] LABS: ACT-LR - POC 277 Seconds (116-155)
[2024-08-29 12:55] LABS: ACT-LR - POC 393 Seconds (116-155)
[2024-08-29 13:15] LABS: ACT-LR - POC 334 Seconds (116-155)
[2024-08-29 13:30] LABS: ACT-LR - POC 311 Seconds (116-155)
--- NOTE | 2024-08-29 16:02 | W.PN.UPDATE ---
Update Note
Progress Note Update
63 yo WM s/p PVI (same day). He denies cp, sob, zulay diet, R fem site VASCADE c/d/i no HT, EKG SB. He will resume Eliquis at 8pm tonight. Activity restrictions reviewed. He will f/u Dr. Palma in 6-8 weeks. He is for d/c home after 5p if groin
stable and voiding.
== END 2024-08-29 17:10 | disposition home or self-care (01) ==
LOC: CATH 08:57
PROVIDERS: Physician Assistant Medical; ATTENDING PHYSICIAN Internal Medicine Cardiovascular Disease; FAMILY PHYSICIAN Family Medicine; OTHER PHYSICIAN Internal Medicine Cardiovascular Disease
DX: I48.0 Paroxysmal atrial fibrillation (principal); I25.110 Atherosclerotic heart disease of native coronary artery with unstable angina pectoris; R55 Syncope and collapse; I10 Essential (primary) hypertension; Z85.46 Personal history of malignant neoplasm of prostate; Z87.891 Personal history of nicotine dependence; I47.20 Ventricular tachycardia, unspecified; E66.9 Obesity, unspecified; Z68.32 Body mass index [BMI] 32.0-32.9, adult; J44.9 Chronic obstructive pulmonary disease, unspecified; J45.909 Unspecified asthma, uncomplicated; N40.0 Benign prostatic hyperplasia without lower urinary tract symptoms; R91.1 Solitary pulmonary nodule; Z79.899 Other long term (current) drug therapy
CPT/HCPCS: C1732; C1894; C1769; C1759; C1733; 36415; 75572; 76937; 80053; 80061; 83036; 83735; 84484; 85025; 85347; 85610; 86850; 86900; 86901; 93005; 93656; C1760; C1766; Q9967